=== PATIENT | female | born 1960 ===

== ENCOUNTER 2018-06-13 13:33 | Emergency (ER) | payer OTHER ==
[2018-06-13 14:00] VITALS: BP 164/89; PULSE 82; RESP 18; TEMP 98.7; O2SAT 97
[2018-06-13] MEDS ORDERED: Sodium Chloride 0.9% 1,000 ML IV STA (14:29)
--- NOTE | 2018-06-13 14:34 | ED PDOC ---
HPI:Nausea, Vomiting, Diarrhea Time Seen by Provider: 06/13/18 14:02 Chief Complaint (Nursing): GI Problem Chief Complaint (Provider): Nausea, chills and loss of appetite History Per: Patient History/Exam Limitations: no limitations Onset/Duration Of Symptoms: Days (x2) Current Symptoms Are (Timing): Still Present Context: Food Associated Symptoms: Chills, Nausea, Vomiting, Loss Of Appetite. denies: Fever , Diarrhea, Back Pain, Constipation, Urinary Symptoms Additional Complaint(s): Emerita Guadalupe is a 57 year old female, with a past medical history of HTN, hypercholesterolemia and diabetes, who presents to the emergency department complaining of nausea, loss of appetite and chills onset since x2 nights ago. Patient also reports having x1 vomiting episode yesterday. Patient believes symptoms might have been caused from eating x2 slices of [employer] pizza and states she was feeling fine before she ate them. She denies any cough, sore throat, abdominal pain, shortness of breath, back pain, constipation, bloody stools or urinary symptoms. No further medical complaints. PMD: None provided. Past Medical History Reviewed: Historical Data, Nursing Documentation, Vital Signs Vital Signs: Last Vital Signs Temp 98.7 F 06/13/18 13:57 Pulse 82 06/13/18 13:57 Resp 18 06/13/18 13:57 BP 164/89 H 06/13/18 13:57 Pulse Ox 97 06/13/18 13:57 - Medical History PMH: Diabetes, HTN, Hypercholesterolemia - Surgical History Surgical History: No Surg Hx - Family History Family History: States: Unknown Family Hx - Social History Current smoker - smoking cessation education provided: No Alcohol: None Drugs: Denies - Immunization History Hx Tetanus Toxoid Vaccination: No Hx Influenza Vaccination: Yes Hx Pneumococcal Vaccination: No - Home Medications Home Medications: Ambulatory Orders Medication Instructions Recorded Bacitracin OINT 1 applic TP BID #1 tube 05/02/17 Enalapril/Hydrochlorothiazide 1 each PO DAILY 05/02/17 [Enalapril-Hctz 10-25 mg Tablet] MetFORMIN [glucOPHAGE] 1,000 mg PO BID 05/02/17 Amoxicillin/Clavulanate [Augmentin 1 tab PO TID #30 tab 06/13/18 500 MG-125 MG] Famotidine [Pepcid] 20 mg PO BID #28 tab 06/13/18 Ondansetron [Zofran] 4 mg PO Q8H #9 tab 06/13/18 - Allergies Allergies/Adverse Reactions: Allergies Allergy/AdvReac Type Severity Reaction Status Date / Time No Known Allergies Allergy Unverified 06/13/18 14:00 Review of Systems ROS Statement: Except As Marked, All Systems Reviewed And Found Negative Constitutional: Positive for: Chills ENT: Negative for: Throat Pain Respiratory: Negative for: Cough, Shortness of Breath Gastrointestinal: Positive for: Nausea, Vomiting. Negative for: Abdominal Pain , Constipation, Hematochezia Genitourinary Female: Negative for: Dysuria, Frequency, Incontinence Musculoskeletal: Negative for: Back Pain Physical Exam - Reviewed Nursing Documentation Reviewed: Yes Vital Signs Reviewed: Yes - Physical Exam Appears: Positive for: No Acute Distress Head Exam: Positive for: ATRAUMATIC, NORMAL INSPECTION, NORMOCEPHALIC Skin: Positive for: Normal Color, Warm, Dry Eye Exam: Positive for: Normal appearance, EOMI, PERRL Neck: Positive for: Painless ROM Cardiovascular/Chest: Positive for: Regular Rate, Rhythm. Negative for: Murmur Respiratory: Positive for: Normal Breath Sounds. Negative for: Respiratory Distress Gastrointestinal/Abdominal: Positive for: Normal Exam, Soft. Negative for: Tenderness Back: Positive for: Normal Inspection Extremity: Positive for: Normal ROM (upper and lower extremities), Other (First digit of right foot with erythema around nail bed with extension into the proximal MTP joint with mild erythema extended upward. Increased warmth and induration but no tenderness to touch). Negative for: Tenderness, Deformity, Swelling Neurologic/Psych: Positive for: Alert, Oriented. Negative for: Motor/Sensory Deficits - Laboratory Results Result Diagrams: 06/13/18 15:09 06/13/18 15:09 - ECG O2 Sat by Pulse Oximetry: 97 (RA) Pulse Ox Interpretation: Normal Medical Decision Making Medical Decision Making: Time: 14:02 Initial Impression: Nausea w/ decreased appetite. Paronychia Initial Plan: --VBG --CMP --Urine dipstick --CBC w/ differential --Sodium Chloride 1,000 ml IV 1,000 mls/hr --Pepcid 20 mg IVP --Zofran Inj 4 mg IVP --Glucose, Blood, POC --Reevaluation Scribe Attestation: Documented by Kvng Parker acting as a scribe for Jeannette De MD. Scribe Attestation: All medical record entries made by the Scribe were at my direction and personally dictated by me. I have reviewed the chart and agree that the record accurately reflects my personal performance of the history, physical exam, medical decision making, and the department course for this patient. I have also personally directed, reviewed, and agree with the discharge instructions and disposition. Disposition - Clinical Impression Clinical Impression: Gastritis, Paronychia - Patient ED Disposition Is Patient to be Admitted: No Doctor Will See Patient In The: Office Counseled Patient/Family Regarding: Diagnosis, Need For Followup, Rx Given - Disposition Referrals: Chepe Verde MD [Staff Provider] - Disposition: Routine/Home Disposition Time: 15:50 Condition: IMPROVED Prescriptions: Amoxicillin/Clavulanate [Augmentin 500 MG-125 MG] 1 tab PO TID #30 tab Famotidine [Pepcid] 20 mg PO BID #28 tab Ondansetron [Zofran] 4 mg PO Q8H #9 tab Instructions: Gastritis, Paronychia Forms: [employer] ([place]) Print Language: ARABIC - POA Present On Arrival: None
[2018-06-13 15:18] LABS: BASO % 0.3 % (0.0-2.0); EOS % 0.2 % (0.0-4.0); HEMOGLOBIN 12.3 g/dL (12.0-16.0); LYMPH # 1.6 K/uL (1.0-4.3); LYMPH % 22.1 % (20.0-40.0); MEAN CELL VOLUME 80.7 fl (81.0-99.0); MEAN CORPUSCULAR HEMOGLOBIN 27.3 pg (27.0-31.0); MEAN CORPUSCULAR HGB CONC 33.8 g/dL (33.0-37.0); MEAN PLATELET VOLUME 7.9 fl (7.2-11.7); MONO # 0.9 K/uL (0.0-0.8); MONO % 12.3 % (0.0-10.0); NEUT # 4.7 K/uL (1.8-7.0); NEUT % 65.1 % (50.0-75.0); RBC 4.51 Mil/uL (3.80-5.20); RED CELL DISTRIBUTION WIDTH 13.3 % (11.5-14.5); WHITE BLOOD COUNT 7.2 K/uL (4.8-10.8)
[2018-06-13 15:27] LABS: ALB/GLOB RATIO 1.2 (1.0-2.1); ALBUMIN 4.4 g/dL (3.5-5.0); ALT/SGPT 34 U/L (9-52); AST/SGOT 27 U/L (14-36); BLOOD UREA NITROGEN 15 mg/dl (7-17); CALCIUM 9.4 mg/dL (8.4-10.2); GFR AFRICAN-AMERICAN > 60; GFR NON-AFRICAN AMERICAN > 60
[2018-06-13 15:48] LABS: VENOUS BLOOD GAS BASE EXCESS 4.8 mmol/L (0.0-2.0); VENOUS BLOOD GAS PCO2 48 mmHg (40-60); VENOUS BLOOD GAS PO2 33 mm/Hg (30-55); VENOUS BLOOD PH 7.41 (7.32-7.43)
== END 2018-06-13 16:20 | disposition home or self-care (01) ==
LOC: H.ER 13:33
DX: K29.70 Gastritis, unspecified, without bleeding (principal); E11.9 Type 2 diabetes mellitus without complications; E78.00 Pure hypercholesterolemia, unspecified; I10 Essential (primary) hypertension; Z79.84 Long term (current) use of oral hypoglycemic drugs
CPT/HCPCS: 80053; 82803; 82948; 85025; 96374; 96375; 99284; J2405; J7030

== ENCOUNTER 2018-09-12 11:41 | Emergency (ER) | payer OTHER ==
[2018-09-12 11:52] VITALS: TEMP 97.6
[2018-09-12 12:31] LABS: BASO # 0.1 K/uL (0.0-0.2); BASO % 0.9 % (0.0-2.0); EOS # 0.4 K/uL (0.0-0.7); EOS % 5.9 % (0.0-4.0); HEMOGLOBIN 11.7 g/dL (12.0-16.0); LYMPH # 2.4 K/uL (1.0-4.3); MEAN CELL VOLUME 86.8 fl (81.0-99.0); MEAN CORPUSCULAR HEMOGLOBIN 28.3 pg (27.0-31.0); MEAN CORPUSCULAR HGB CONC 32.5 g/dL (33.0-37.0); MONO # 0.4 K/uL (0.0-0.8); NEUT # 3.2 K/uL (1.8-7.0); NEUT % 50.2 % (50.0-75.0); NRBC % 0.1 % (0.0-0.0); RBC 4.13 Mil/uL (3.80-5.20); WHITE BLOOD COUNT 6.4 K/uL (4.8-10.8)
--- NOTE | 2018-09-12 12:32 | ED PDOC ---
HPI: Chest Pain Time Seen by Provider: 09/12/18 11:54 Chief Complaint (Nursing): Chest Pain Chief Complaint (Provider): Chest Pain History Per: Patient History/Exam Limitations: no limitations Onset/Duration Of Symptoms: Days (x3), Waxing/Waning Current Symptoms Are (Timing): Still Present Associated Symptoms: denies: Nausea Additional Complaint(s): Emerita Guadalupe is a 57 year old female with a past medical history of hypertension, diabetes, and hypercholesterolemia who is presenting to the ED for evaluation of waxing and waning lower substernal chest pain onset 3 days ago. Patient states that the episodes last a few seconds at a time and reports that they only occur during the day time as she is able to sleep soundly. She denies any family history of CAD and also denies any shortness of breath, nausea, vomiting, or weakness. PMD: none provided Past Medical History Reviewed: Historical Data, Nursing Documentation, Vital Signs Vital Signs: Last Vital Signs Temp 97.6 F 09/12/18 11:51 Pulse 72 09/12/18 11:51 Resp 20 09/12/18 11:51 BP 217/96 H 09/12/18 11:51 Pulse Ox 99 09/12/18 11:51 - Medical History PMH: Diabetes, Gastritis, HTN, Hypercholesterolemia - Surgical History Surgical History: No Surg Hx - Family History Family History: States: No Known Family Hx Denies: CAD - Social History Current smoker - smoking cessation education provided: No Alcohol: None Drugs: Denies - Immunization History Hx Tetanus Toxoid Vaccination: No Hx Influenza Vaccination: Yes Hx Pneumococcal Vaccination: No - Home Medications Home Medications: Ambulatory Orders Medication Instructions Recorded Bacitracin OINT 1 applic TP BID #1 tube 05/02/17 Enalapril/Hydrochlorothiazide 1 each PO DAILY 05/02/17 [Enalapril-Hctz 10-25 mg Tablet] MetFORMIN [glucOPHAGE] 1,000 mg PO BID 05/02/17 Amoxicillin/Clavulanate [Augmentin 1 tab PO TID #30 tab 06/13/18 500 MG-125 MG] Famotidine [Pepcid] 20 mg PO BID #28 tab 06/13/18 Ondansetron [Zofran] 4 mg PO Q8H #9 tab 06/13/18 - Allergies Allergies/Adverse Reactions: Allergies Allergy/AdvReac Type Severity Reaction Status Date / Time No Known Allergies Allergy Unverified 06/13/18 14:00 Review of Systems ROS Statement: Except As Marked, All Systems Reviewed And Found Negative Cardiovascular: Positive for: Chest Pain Respiratory: Negative for: Shortness of Breath Gastrointestinal: Negative for: Nausea, Vomiting Neurological: Negative for: Weakness Physical Exam - Reviewed Nursing Documentation Reviewed: Yes Vital Signs Reviewed: Yes - Physical Exam Appears: Positive for: Non-toxic, No Acute Distress Head Exam: Positive for: ATRAUMATIC Skin: Positive for: Normal Color, Warm, DRY Eye Exam: Positive for: EOMI, Normal appearance, PERRL ENT: Positive for: Normal ENT Inspection Neck: Positive for: Normal, Painless ROM Cardiovascular/Chest: Positive for: Regular Rate, Rhythm. Negative for: Murmur Respiratory: Positive for: Normal Breath Sounds. Negative for: Respiratory Distress Gastrointestinal/Abdominal: Positive for: Normal Exam, Soft. Negative for: Tenderness Back: Positive for: Normal Inspection. Negative for: L CVA Tenderness, R CVA Tenderness, Vertebral Tenderness Extremity: Positive for: Normal ROM. Negative for: Deformity, Swelling Neurologic/Psych: Positive for: Alert, Oriented. Negative for: Motor/Sensory Deficits - Laboratory Results Result Diagrams: 09/12/18 12:20 09/12/18 12:20 - ECG ECG Rhythm: Positive for: Normal QRS, Normal ST Segment, Sinus Rhythm Rate: 63 O2 Sat by Pulse Oximetry: 99 (RA) - Progress Condition: Unchanged (patient did not have symptoms while in the ER ) Medical Decision Making Medical Decision Making: Time: 12:11 Impression: Atypical Chest Pain Plan: --EKG --BMP --Troponin --CBC Scribe Attestation: Documented by, Alisa Moore acting as a scribe for Jeannette De MD. Provider Scribe Attestation: All medical record entries made by the Scribe were at my direction and personally dictated by me. I have reviewed the chart and agree that the record accurately reflects my personal performance of the history, physical exam, medical decision making, and the department course for this patient. I have also personally directed, reviewed, and agree with the discharge instructions and disposition. Disposition - Clinical Impression Clinical Impression: Atypical chest pain - Patient ED Disposition Is Patient to be Admitted: No Doctor Will See Patient In The: Office Counseled Patient/Family Regarding: Diagnosis, Need For Followup - Disposition Disposition: Routine/Home Disposition Time: 14:00 Condition: STABLE Instructions: Chest Pain That Is Not Caused by the Heart (DC) Forms: [facility] (Macedonian) Print Language: POLISH - POA Present On Arrival: None
[2018-09-12 12:43] LABS: BLOOD UREA NITROGEN 20 mg/dl (7-17); CALCIUM 9.6 mg/dL (8.4-10.2); GFR NON-AFRICAN AMERICAN > 60
[2018-09-12 14:47] VITALS: BP 158/81; PULSE 61; RESP 19; O2SAT 98
--- NOTE | 2018-09-12 18:51 | CARD ---
APPROVED REPORT Date of service: 09/12/2018 EKG Measurement Heart [id number] <Conclusion> Normal sinus rhythm Normal ECG
== END 2018-09-12 14:52 | disposition home or self-care (01) ==
LOC: H.ER 11:41
DX: R07.89 Other chest pain (principal)